=== PATIENT | female | born 1965 | race Caucasian/White ===

== ENCOUNTER 2025-07-22 10:12 | Outpatient (CLI) | payer BC | END 2025-07-22 10:13 | disposition home or self-care (01) | LOC: CSHMAMMO 10:12 | PROVIDERS: ATTEND Physician Assistant | DX: Z12.31 Encounter for screening mammogram for malignant neoplasm of breast (principal); M85.89 Other specified disorders of bone density and structure, multiple sites; Z98.82 Breast implant status | CPT/HCPCS: 77063; 77067 ==